=== PATIENT | female | born 1970 | race Caucasian/White ===

== ENCOUNTER → 2018-07-11 08:48 | Outpatient (CLI) | payer OTHER, SELFPAY ==
--- NOTE | 2018-07-11 08:54 | MM_ITS ---
MM Dig screening mamm BI w/CAD CAD Screening COMPARISON: Digital mammograms with CAD 03/22/2017 and 03/22/2016 INDICATION: There is a history of breast cancer patient maternal grandmother TECHNIQUE: Standard CC and MLO images were obtained. R2 CAD reviewed. FINDINGS: Scattered fibroglandular densities are seen throughout both breasts. Again noted is the subtle asymmetric density upper outer quadrant right breast. There is no suspicious lesion and there are no suspicious microcalcifications. IMPRESSION: Stable exam with no suspicious lesion seen BI-RADS Category: 2 Benign Finding(s) RECOMMENDED FOLLOW-UP: 1YR - 1 YEAR FOLLOW-UP (A letter has been sent to the patient regarding results of the study.)
== END ==
PROVIDERS: PCP Family Medicine; Visit Provider Nurse Practitioner Obstetrics & Gynecology
DX: Z12.31 Encounter for screening mammogram for malignant neoplasm of breast (principal)
CPT/HCPCS: 77067

== ENCOUNTER → 2019-07-30 15:24 | Outpatient (CLI) | payer OTHER, SELFPAY ==
--- NOTE | 2019-07-30 15:27 | MM_ITS ---
PROCEDURE: MM DIG SCREENING MAMM BI W/CAD CLINICAL INDICATION: Routine Screening Mammogram There is a history of breast cancer patient's paternal grandmother. COMPARISON: [facility] DIG MAMM-SCREEN JEFFRY from 03/22/2016 [facility] DIG MAMM-SCREEN JEFFRY W/CAD from 03/30/2017 [facility] MM Dig screening mamm BI w/CAD from 07/11/2018 TECHNIQUE: Standard CC and MLO images were obtained. R2 CAD reviewed. FINDINGS: Mild scattered fibroglandular densities are seen in both breasts. Again noted is the asymmetric density upper-outer quadrant right breast which is stable. There is no suspicious lesion and no suspicious microcalcifications. IMPRESSION: Fibrofatty parenchyma with no suspicious lesions seen BI-RAD Category: 2 Benign Finding(s) FOLLOW-UP: 1YR 1 Year Follow-up (A letter has been sent to the patient regarding results of the study.) Dictated by: Dr. Merrill Wright MD 07/31/2019 10:[address] Merrill Wright MD in [place] 07/31/2019 10:30
== END ==
PROVIDERS: PCP Family Medicine; Visit Provider Nurse Practitioner Obstetrics & Gynecology
DX: Z12.31 Encounter for screening mammogram for malignant neoplasm of breast (principal)
CPT/HCPCS: 77067

== ENCOUNTER → 2020-09-21 08:18 | Outpatient (CLI) | payer OTHER, SELFPAY ==
--- NOTE | 2020-09-21 08:18 | MM_ITS ---
PROCEDURE: MM DIG SCREENING MAMM BI W/CAD Referring Doctor: Onofre Au Patient Age:50Y CLINICAL INDICATION: screening xmg 50-year-old screening mammogram No new complaints. Takes control pills Family history paternal grandmother with breast cancer COMPARISON: MG DIGMAMMDX MAMMOGRAM DX-OPERATIONAL RISK ANALYST N/C from 02/03/2013 MG DIGMAMMS MAMMOGRAM SCREEN-OPERATIONAL RISK ANALYST N/C from 02/20/2013 MG DMDXUR DIG MAMM-DX UNI-RT from 08/19/2013 MG [facility] DIG MAMM-SCREEN JEFFRY from 02/27/2014 MG [facility] DIG MAMM-SCREEN JEFFRY from 03/15/2015 MG [facility] DIG MAMM-SCREEN JEFFRY from 03/22/2016 MG [facility] DIG MAMM-SCREEN JEFFRY W/CAD from 03/30/2017 MG [facility] MM Dig screening mamm BI w/CAD from 07/11/2018 MG MM DIG SCREENING MAMM BI W/CAD from 07/30/2019 TECHNIQUE: Standard CC and MLO images were obtained. R2 CAD reviewed. Bilateral digital breast tomosynthesis included. FINDINGS: scattered fibroglandular elements bilaterally. Moderate density breast. No suspicious calcifications Right breast. The asymmetric density in the upper-outer quadrant right breast is longstanding the dating back to 2012. This most likely is a stable feature-but given it has slightly radiating margins on today's CC view and since I do not see that there has been ultrasound I would suggest the patient return for ultrasound right breast along with and diagnostic spot views (cc& the MLO spot views with full 90 degree view right breast). A right breast ultrasound will serve as useful baseline as well Left breast-no new areas of concern. Stable architecture.. Tiny 3 mm well-circumscribed density far lateral left breast is unchanged since previous study likely reflecting small intramammary node or possibly tiny cyst IMPRESSION: Right breast:. Longstanding asymmetric density right breast upper outer quadrant is again noted. The the the the the the the the the the the the-Most likely stable feature but since question slightly more evident radiating margins appearance on today's CC view, would suggest spot views and ultrasound for further evaluation.. (Particularly since no prior ultrasound is been performed here previously/a baseline ultrasound would be useful here) .- Left breast.-Stable follow-up 1 year on left BI-RAD Category: 0 Need Additional Imaging Evaluation FOLLOW-UP: IMM Immediate Follow-up Recommended (A letter has been sent to the patient regarding results of the study.) Dictated by: Neal Metcalf MD 09/27/2020 10:40 Neal Metcalf MD in [place] 09/27/2020 10:40
== END ==
PROVIDERS: PCP Family Medicine; Visit Provider Nurse Practitioner Obstetrics & Gynecology
DX: Z12.31 Encounter for screening mammogram for malignant neoplasm of breast (principal)
CPT/HCPCS: 77063; 77067

== ENCOUNTER → 2020-10-26 14:13 | Outpatient (CLI) | payer OTHER, SELFPAY ==
--- NOTE | 2020-10-26 14:14 | MM_ITS ---
PROCEDURE: MM DIG MAMM DX UNILAT RT CAD Digital Breast Tomosynthesis Included CLINICAL INDICATION: abnormal xmg COMPARISON: MG [facility] MM Dig screening mamm BI w/CAD from 07/11/2018 MG MM DIG SCREENING MAMM BI W/CAD from 07/30/2019 MG MM DIG SCREENING MAMM BI W/CAD from 09/21/2020 US US BREAST RT COMPLETE from 10/26/2020 TECHNIQUE: Spot-compression MLO and CC views were obtained. FINDINGS: The spot compression views lessen concern the asymmetric glandular elements seen on recent mammogram. In particular the spot CC views only show minimal diffuse asymmetric glandular elements. The spot MLO view shows no significant change from the standard compression view. However ultrasound performed the same date showed no abnormality and there couple normal appearing nodes in the axilla. IMPRESSION: Essentially negative problem solving views with negative ultrasound and recommend the patient continue with yearly screening mammography BI-RAD Category: 1 Negative FOLLOW-UP: 1YR 1 Year Follow-up (A letter has been sent to the patient regarding results of the study.) Dictated by: Dr. Merrill Wright MD 11/02/2020 17:35 Dr. Merrill Wright MD in [place] 11/02/2020 17:35
--- NOTE | 2020-10-26 14:14 | US_ITS ---
PROCEDURE: US BREAST RT COMPLETE CLINICAL INDICATION: abnormal findings of diagnostic imaging of breast COMPARISON: MG MM DIG SCREENING MAMM BI W/CAD from 09/21/2020 MG MM DIG MAMM DX UNILAT RT CAD from 10/26/2020 FINDINGS: No cystic or solid lesions evident. No sonographic abnormality to correspond to the area of mammographic interest IMPRESSION: Unremarkable right breast ultrasound. Please see mammogram report of 10/26/2020 for BI-RADS category and follow-up recommendations Dictated by: Luis Enrique Patel MD 11/09/2020 09:07 Luis Enrique Patel MD in [place] 11/09/2020 09:07
== END ==
PROVIDERS: PCP Family Medicine; Visit Provider Nurse Practitioner Obstetrics & Gynecology
DX: R92.8 Other abnormal and inconclusive findings on diagnostic imaging of breast (principal)
CPT/HCPCS: 76641; 77061; 77065; G0279

== ENCOUNTER → 2022-05-16 10:33 | Outpatient (CLI) | payer BC, SELFPAY ==
--- NOTE | 2022-05-16 10:34 | MM_ITS ---
PROCEDURE INFORMATION: Exam: MG Bilateral Screening 3D Mammography Exam date and time: 05/16/2022 10:30 AM Age: 52 years old Clinical indication: Screening mammogram TECHNIQUE: Imaging protocol: Bilateral Screening tomosynthesis and 2D mammography including computer-aided detection (CAD) when performed. COMPARISON: 1. MG MM DIG MAMM DX UNILAT RT CAD 10/26/2020 2:22 PM 2. MG MM DIG SCREENING MAMM BI W/CAD 09/21/2020 8:29 AM 3. MG MM DIG SCREENING MAMM BI W/CAD 07/30/2019 3:37 PM 4. MG [facility] MM Dig screening mamm BI w/CAD 07/11/2018 9:22 AM FINDINGS: MAMMOGRAPHY: Breast composition: There are scattered areas of fibroglandular density. Mass: None. Architectural distortion: No new or suspicious architectural distortion. Calcifications: No new or suspicious calcifications are present Asymmetric density: No new or suspicious asymmetric density is present Skin thickening: None. Axillary adenopathy: None. IMPRESSION: No mammographic evidence of malignancy. Recommend annual screening mammography unless otherwise clinically indicated. ASSESSMENT: BI-RADS category 1: Negative
== END ==
PROVIDERS: PCP Family Medicine; Visit Provider Nurse Practitioner Obstetrics & Gynecology
DX: Z12.31 Encounter for screening mammogram for malignant neoplasm of breast (principal)
CPT/HCPCS: 77063; 77067

== ENCOUNTER → 2023-06-25 08:16 | Outpatient (CLI) | payer OTHER, SELFPAY ==
--- NOTE | 2023-06-25 08:16 | MM_ITS ---
PROCEDURE INFORMATION: Exam: MG Bilateral Screening 3D Mammography Exam date and time: 06/25/2023 8:17 AM Age: 53 years old Clinical indication: Screening mammogram TECHNIQUE: Imaging protocol: Bilateral Screening tomosynthesis and 2D mammography including computer-aided detection (CAD) when performed. COMPARISON: 1. MG MM DIG SCREENING MAMM BI W/CAD 05/16/2022 10:30 AM 2. MG MM DIG MAMM DX UNILAT RT CAD 10/26/2020 2:22 PM 3. MG MM DIG SCREENING MAMM BI W/CAD 09/21/2020 8:29 AM 4. MG MM DIG SCREENING MAMM BI W/CAD 07/30/2019 3:37 PM FINDINGS: MAMMOGRAPHY: Breast composition: There are scattered areas of fibroglandular density. Mass: Stable benign-appearing subcentimeter nodules are present in the right breast. No new or morphologically suspicious nodule has developed to suggest malignancy. Architectural distortion: No new or suspicious architectural distortion. Calcifications: No new or suspicious calcifications are present Asymmetric density: No new or suspicious asymmetric density is present Skin thickening: None. Axillary adenopathy: None. IMPRESSION: No mammographic evidence of malignancy. Recommend annual screening mammography unless otherwise clinically indicated. ASSESSMENT: BI-RADS category 2: Benign
== END ==
PROVIDERS: PCP Family Medicine; Visit Provider Nurse Practitioner Obstetrics & Gynecology
DX: Z12.31 Encounter for screening mammogram for malignant neoplasm of breast (principal)
CPT/HCPCS: 77063; 77067

== ENCOUNTER 2024-07-23 07:50 | Outpatient (CLI) | payer OTHER, SELFPAY ==
--- NOTE | 2024-07-23 07:50 | MM_ITS ---
PROCEDURE INFORMATION: Exam: MG Bilateral Screening 3D Mammography Exam date and time: 07/23/2024 7:40 AM Age: 54 years old Clinical indication: Screening exam. TECHNIQUE: Imaging protocol: Bilateral Screening tomosynthesis and 2D mammography including computer-aided detection (CAD) when performed. COMPARISON: 1. MG MM DIG SCREENING MAMM BI W/CAD 06/25/2023 8:17 AM 2. MG MM DIG SCREENING MAMM BI W/CAD 05/16/2022 10:30 AM FINDINGS: MAMMOGRAPHY: Breast composition: There are scattered areas of fibroglandular density. Mass: No suspicious masses. Architectural distortion: None. Calcifications: No suspicious calcifications. Asymmetric density: None. Skin thickening: None. Axillary adenopathy: None. IMPRESSION: No mammographic evidence of malignancy. Annual screening is recommended unless otherwise clinically indicated. ASSESSMENT: BI-RADS Category 1: Negative.
== END 2024-07-23 23:59 | disposition home or self-care (01) ==
LOC: RAD 07:50
PROVIDERS: PCP Family Medicine; Visit Provider Nurse Practitioner Obstetrics & Gynecology
DX: Z12.31 Encounter for screening mammogram for malignant neoplasm of breast (principal)
CPT/HCPCS: 77063; 77067